=== PATIENT | female | born 2000 | race Caucasian/White ===

== ENCOUNTER 2023-11-09 05:56 | Emergency (ER) | payer BC ==
[2023-11-09] MEDS ORDERED: ONDANSETRON 4 MG/2 ML VIAL ONE (06:23)
[2023-11-09] MEDS ORDERED: MORPHINE 4 MG/ML SYR ONE (06:23)
[2023-11-09] MEDS ORDERED: NA CHLORIDE 0.9% 1,000 ML ONE (06:23)
--- NOTE | 2023-11-09 06:40 | RAD REPORT ---
EXAM DESCRIPTION: US - Abdomen Exam Limited - 11/09/2023 6:33 am CLINICAL HISTORY: ruq us, hx of gallstones, ruq pain COMPARISON: No comparisons FINDINGS: The gallbladder demonstrates shadowing gallstones No pericholecystic fluid or gallbladder wall thickening. The common bile duct is normal measuring 4 mm. No sonographic Gann sign elicited. The liver demonstrates no findings of intrahepatic biliary dilatation. IMPRESSION: Cholelithiasis without sonographic evidence of acute cholecystitis. No biliary duct dila tation.
[2023-11-09 06:51] LABS: Specific Gravity 1.021 (1.005-1.030)
[2023-11-09 06:52] LABS: Absolute Basophils 0.1 K/uL (0-0.5); Absolute Eosinophils 0.1 K/uL (0-0.5); Absolute Lymphocytes (CBC) 1.5 K/uL (0.7-4.9); Absolute Monocytes 0.6 K/uL (0.1-1.3); Absolute Neutrophil 9.1 K/uL (1.8-8.0); Basophils % 0.9 % (0-1.3); Eosinophils % 0.6 % (0-4.4); Hemoglobin 14.3 g/dL (12.0-15.0); Lymphocytes % 12.9 % (15.3-44.8); MCH 28.1 pg (27.0-35.0); MCHC 33.2 g/dL (32.0-36.0); MCV 84.6 fL (80-100); MPV 8.3 fL (7.6-11.3); Monocytes % 5.5 % (3.3-12.3); Neutrophils % 80.1 % (41.7-73.7); Nucleated Red Blood Cells % 0.1 % (0-0); Platelets 390 thou/uL (152-406); RBC Red Blood Cell Count 5.08 M/uL (3.86-4.86); Red Cell Distribution Width 12.8 % (12.1-15.2)
[2023-11-09 06:52] LABS: Specific Gravity 1.021 (1.005-1.030); Sqamous Epithelial <5 /HPF (None Seen); Urine Bacteria <20 /HPF (<20); Urine Bilirubin NEGATIVE (Negative); Urine Blood 3+ (OVER) (Negative); Urine Clarity Turbid (Clear); Urine Color Yellow (Yellow); Urine Culture Reflex Order NOT NEEDED; Urine Glucose NEGATIVE (Negative); Urine Ketones NEGATIVE (Negative); Urine Microscopic Reflex YN ORDER UMIC; Urine Mucus Slight /HPF (None Seen); Urine Nitrite NEGATIVE (Negative); Urine Protein TRACE (Negative); Urine RBC >50 /HPF (None Seen); Urine Urobilinogen Normal (Normal); Urine WBC <5 /HPF (<5)
[2023-11-09 07:11] LABS: Albumin 4.1 g/dL (3.4-5.0); Albumin/Globulin Ratio 1.1 (1.1-1.8); Anion Gap 5.6 mEq/L (5.0-15.0); Bilirubin Total 1.1 mg/dL (0.2-1.0); Globulin 3.7 g/dL (2.3-3.5); Potassium 3.6 mEq/L (3.5-5.1); Protein, Total 7.8 g/dL (6.4-8.2)
--- NOTE | 2023-11-09 07:46 | ER ---
Nurse's Notes [facility] Name: Zuleika Fitzpatrick Age: 23 yrs Sex: Female : 2000 Arrival Date: 11/09/2023 Time: 05:56 Bed 20 Private MD: Diagnosis: Other cholelithiasis without obstruction Presentation: 11/08 06:14 Chief complaint: Patient states: My stomach started hurting about 7 hours ago, it feels jw7 like it could be a gallstone attack. I'm scheduled for a Cholecystectomy on December 04. Coronavirus screen: At this time, the client does not indicate any symptoms associated with coronavirus-19. Ebola Screen: No symptoms or risks identified at this time. Initial Sepsis Screen: Does the patient meet any 2 criteria? No. Patient's initial sepsis screen is negative. Does the patient have a suspected source of infection? No. Patient's initial sepsis screen is negative. Risk Assessment: Do you want to hurt yourself or someone else?. Onset of symptoms was November 08, 2023. Care prior to arrival: Medication(s) given: Tylenol. 06:14 Method Of Arrival: Ambulatory [facility] 06:14 Acuity: ZULMA 3 jw7 Triage Assessment: 06:16 General: Appears in no apparent distress. comfortable, Behavior is calm, cooperative, jw7 appropriate for age. Pain: Complains of pain in right upper quadrant Pain radiates to back Pain currently is 6 out of 10 on a pain scale. Quality of pain is described as sharp, Pain began suddenly, Is continuous. EENT: No deficits noted. No signs and/or symptoms were reported regarding the EENT system. Neuro: Level of Consciousness is awake, alert, obeys commands, Oriented to person, place, time, situation, Appropriate for age. Cardiovascular: Capillary refill < 3 seconds Clubbing of nail beds is absent JVD is absent Patient's skin is warm and dry. Respiratory: Airway is patent Trachea midline Respiratory effort is even, unlabored, Respiratory pattern is regular, symmetrical, Breath sounds are clear bilaterally. GI: Abdomen is round non-distended, obese, Bowel sounds present X 4 quads. Abd is soft Abdomen is tender to palpation. : No deficits noted. No signs and/or symptoms were reported regarding the genitourinary system. Derm: Skin is intact, is healthy with good turgor, Skin is dry, Skin is normal, Skin temperature is warm. Musculoskeletal: Circulation, motion, and sensation intact. Range of motion: intact in all extremities. 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 Flu vaccine is up to date. - Infectious Disease History:: Denies. - Social history:: Smoking status: Patient denies any tobacco usage or history of. Patient uses alcohol, occasionally. Patient/guardian denies using street drugs, IV drugs. Screenin:20 [facility] ED Fall Risk Assessment (Adult) History of falling in the last 3 months, jw7 including since admission No falls in past 3 months (0 pts) Confusion or Disorientation No (0 pts) Intoxicated or Sedated No (0 pts) Impaired Gait No (0 pts) Mobility Assist Device Used No (0 pt) Altered Elimination No (0 pt) Score/Fall Risk Level 0 - 2 = Low Risk Oriented to surroundings, Maintained a safe environment, Educated pt \T\ family on fall prevention, incl call for assistance when getting out of bed. Abuse screen: Denies threats or abuse. Denies injuries from another. Nutritional screening: No deficits noted. Tuberculosis screening: No symptoms or risk factors identified. Assessment: 06:20 General: See Triage Assessment. jw7 Vital Signs: 06:14 BP 137 / 73; Pulse 76; Resp 18 S; Temp 97.6(O); Pulse Ox 98% on R/A; Weight 117.93 kg; jw7 Height 5 ft. 2 in. ; Pain 6/10; 07:47 BP 110 / 63; Pulse 48; Resp 16; Pulse Ox 100% ; bp 06:14 Body Mass Index 47.55 (117.93 kg, 157.48 cm) 7 06:14 Pain Scale: Adult [facility] ED Course: 06:01 Patient arrived in ED. gm2 06:01 Cirilo Leiva MD is Attending Physician. ec2 06:14 Waits, Margaret, RN is Primary Nurse. jw7 06:16 Triage completed. jw7 06:16 Arm band placed on. jw7 06:20 Patient has correct armband on for positive identification. Bed in low position. Call 7 light in reach. Provided Education on: Use of Call Light. 06:29 Test, Urine Sent. jw7 06:29 Urinalysis w/ reflexes Sent. jw7 06:29 Urine collected: clean catch specimen, uyen colored. jw7 06:30 Initial lab(s) drawn, by me, sent to lab. Inserted saline lock: 20 gauge in right jw7 antecubital area, using aseptic technique. Blood collected. 06:34 US Abdomen Limited In Process Unspecified. EDMS 06:47 CBC with Diff Sent. jw7 06:47 CMP Sent. jw7 06:48 Lipase Sent. jw7 06:48 Test, Urine Sent. jw7 06:48 Urinalysis w/ reflexes Sent. jw7 06:58 Attending Physician role handed off by Cirilo Leiva MD rt 06:58 Jon Sanchez MD is Attending Physician. rt 07:03 Primary Nurse role handed off by Margaret Mckeon, RN bp 07:03 Kendrick Richardson, FELICIA is Primary Nurse. bp 07:47 No provider procedures requiring assistance completed. IV discontinued, intact, bp bleeding controlled, No redness/swelling at site. Pressure dressing applied. Administered Medications: 06:40 Drug: NS 0.9% IV 1000 ml IV at 1 bolus Per protocol; 1000 mL bolus Route: IV; Rate: 1 jw7 bolus; Site: right antecubital; 07:48 Follow up: IV Status: Completed infusion; IV Intake: 1000ml bp 06:40 Drug: Ondansetron IVP 4 mg IVP once; over 2 minutes Route: IVP; Site: right antecubital;jw7 07:47 Follow up: Response: No adverse reaction bp 06:40 Drug: morphine IVP or IV 4 mg IVP once over 4 mins Route: IVP; Infused Over: 4 mins; jw7 Site: right antecubital; 07:47 Follow up: Response: No adverse reaction bp Medication: 06:20 VIS not applicable for this client. jw7 Intake: 07:48 IV: 1000ml; Total: 1000ml. bp Outcome: 07:45 Discharge ordered by . rt 07:48 Discharged to home ambulatory, bp 07:48 Condition: stable 07:48 Discharge instructions given to patient, Instructed on discharge instructions, follow up and referral plans. medication usage, Demonstrated understanding of instructions, follow-up care, medications, Prescriptions given X 2, 08:00 Patient left the ED. bp Signatures: Dispatcher [employer] Kendrick Rooney RN RN bp Margaret Mckeon RN RN jw7 Jon Sanchez MD MD rt Corral, Edwin, MD MD 2 Bianca Fitzpatrick [facility]
--- NOTE | 2023-11-09 07:46 | EDPHYS ---
Physician Documentation [facility] Name: Zuleika Fitzpatrick Age: 23 yrs Sex: Female : 2000 Arrival Date: 11/09/2023 Time: 05:56 Bed 20 Private MD: ED Physician Jon Sanchez HPI: 11/08 06:15 This 23 yrs old Female presents to ER via Unassigned with complaints of Abdominal Pain. ec2 06:15 Patient with history of gallstones arrives today for upper abdominal pain. Patient ec2 reports the pain started last night. States that she had steak and potatoes for dinner last night. Patient reports some associated nausea, no vomiting. Patient denies any bowel issues, no urinary complaints. Patient reports no previous abdominal surgeries, reports that she has been diagnosed with gallstones and is scheduled to get her gallbladder removed in approximately 1 month.. 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 Flu vaccine is up to date. - Infectious Disease History:: Denies. - Social history:: Smoking status: Patient denies any tobacco usage or history of. Patient uses alcohol, occasionally. Patient/guardian denies using street drugs, IV drugs. ROS: 06:15 Constitutional: as per hpi ec2 Exam: 06:15 Constitutional: GEN: NAD Head: atraumatic Eyes: EOMI Ears: External ears are ec2 normal. CV: regular rate LUNGS: no respiratory distress ABD: non-distended, soft, tender in the epigastrium and right upper quadrant, no guarding, not rigid. SKIN: no evidence of rashes MSK: no evidence of trauma NEURO: moves all extremities equally Vital Signs: 06:14 BP 137 / 73; Pulse 76; Resp 18 S; Temp 97.6(O); Pulse Ox 98% on R/A; Weight 117.93 kg; jw7 Height 5 ft. 2 in. ; Pain 6/10; 07:47 BP 110 / 63; Pulse 48; Resp 16; Pulse Ox 100% ; bp 06:14 Body Mass Index 47.55 (117.93 kg, 157.48 cm) jw7 06:14 Pain Scale: Adult jw7 MDM: 06:01 Patient medically screened. ec2 06:15 Data reviewed: vital signs. ED course: Patient arrives today for evaluation of upper ec2 abdominal pain. Examination remarkable for abdominal findings as above. Will obtain lab work, ultrasound, treat the patient's pain. Differential diagnosis include processes such as cholelithiasis, cholecystitis, urinary tract infection, .. 06:45 ED course: Ultrasound shows cholelithiasis without cholecystitis, no CBD abnormalities ec2 noted . 06:56 Transition of care: After a detail discussion of the patient's case, care is ec2 transferred to Jon Sanchez MD. 07:48 Differential diagnosis: Cholelithiasis, cholecystitis, pancreatitis. I considered the rt following discharge prescriptions or medication management in the emergency department Medications were administered in the Emergency Department. See MAR. Care significantly affected by the following chronic conditions: Cholelithiasis. Counseling: I had a detailed discussion with the patient and/or guardian regarding the historical points, exam findings, and any diagnostic results supporting the discharge/admit diagnosis, lab results, radiology results, the need for outpatient follow up, to return to the emergency department if symptoms worsen or persist or if there are any questions or concerns that arise at home. 11/08 06:15 Order name: CBC with Diff; Complete Time: 06:58 ec2 11/08 06:15 Order name: CMP; Complete Time: 07:16 ec2 11/08 06:15 Order name: Lipase; Complete Time: 07:16 ec2 11/08 06:15 Order name: Test, Urine; Complete Time: 06:58 ec2 11/08 06:15 Order name: Urinalysis w/ reflexes; Complete Time: 06:58 ec2 11/08 06:15 Order name: US Abdomen Limited; Complete Time: 06:45 ec2 11/08 06:15 Order name: IV Saline Lock; Complete Time: 06:47 ec2 11/08 06:15 Order name: Labs collected and sent; Complete Time: 06:47 ec2 Administered Medications: 06:40 Drug: NS 0.9% IV 1000 ml IV at 1 bolus Per protocol; 1000 mL bolus Route: IV; Rate: 1 jw7 bolus; Site: right antecubital; 07:48 Follow up: IV Status: Completed infusion; IV Intake: 1000ml bp 06:40 Drug: Ondansetron IVP 4 mg IVP once; over 2 minutes Route: IVP; Site: right antecubital;jw7 07:47 Follow up: Response: No adverse reaction bp 06:40 Drug: morphine IVP or IV 4 mg IVP once over 4 mins Route: IVP; Infused Over: 4 mins; jw7 Site: right antecubital; 07:47 Follow up: Response: No adverse reaction bp Disposition Summary: 11/09/23 07:45 Discharge Ordered Notes: Location: Home rt Condition: Stable rt Diagnosis - Other cholelithiasis without obstruction rt Followup: ec2 - With: Private Physician - When: - Reason: Recheck today's complaints Discharge Instructions: - Discharge Summary Sheet rt - Cholelithiasis rt Forms: - Medication Reconciliation Form rt - Antibiotic Education rt - Prescription Opioid Use rt - Patient Portal Instructions rt - Leadership Thank You Letter rt Prescriptions: - ondansetron 4 mg Oral Tablet,disintegrating - take 1 tablet ORAL route every 6 hours as needed for nausea; 15 tablet; rt Refills: 0, Product Selection Permitted - Tramadol 50 mg Oral tablet - take 1 tablet ORAL route every 8 hours as needed for pain; 15 tablet; Refills: rt 0, Product Selection Permitted Signatures: Dispatcher [employer] Margaret Bradshaw RN RN jw7 Jon Sanchez MD MD rt Cirilo Leiva MD MD 2 Kendrick Richardson RN bp
[2023-11-09 08:14] VITALS: BP 110/63; TEMP 97.6; O2SAT 100
== END 2023-11-09 08:00 | disposition home or self-care (01) ==
LOC: ER 05:56
DX: K80.80 Other cholelithiasis without obstruction (principal)
CPT/HCPCS: 96361; 85025; 81001; 36415; 81025; 83690; 80053; 76705; 96375; 96374; 99284; J2405; J7030